=== PATIENT | male | born 1940 | race Caucasian/White ===

== ENCOUNTER → 2019-01-13 | Day surgery (SDC) | payer OTHER ==
[2019-01-13 07:56] VITALS: TEMP 98.4
[2019-01-13 13:50] VITALS: BP 150/54; PULSE 63
== END | disposition home or self-care (01) ==
LOC: EDSTATUS 01-06 16:00 → JASUSAT 06:12 → JASU-ENDO 06:12
PROVIDERS: ATTEND Family Medicine
PROC: 3E0337Z Introduction of Electrolytic and Water Balance Substance into Peripheral Vein, Percutaneous Approach (ICD-10-PCS; principal; 2019-01-13)
DX: M48.02 Spinal stenosis, cervical region (principal)
CPT/HCPCS: 70498-TC; 96360; 96361; C1887

== ENCOUNTER 2019-03-25 11:18 | Emergency (ER) | payer OTHER ==
[2019-03-25 11:28] VITALS: BP 168/70; PULSE 67; TEMP 99.2; BMI 22.8
--- NOTE | 2019-03-25 12:41 | PDOC ---
History of Present Illness - General Chief Complaint: Injury Stated Complaint: FALL Time Seen by Provider: 03/25/19 12:00 - History of Present Illness Initial Comments: 03/25/19 12:38 78-year-old male with a past medical history of coronary artery disease and metastatic melanoma presents for evaluation after a fall last night. He states he was intoxicated in his home fell and injured his right side. He complains of right-sided rib pain. He also complains of abrasions on his elbow. Past History - Past Medical History Allergies/Adverse Reactions: Allergies Allergy/AdvReac Type Severity Reaction Status Date / Time No Known Allergies Allergy Verified 03/25/19 11:20 Home Medications: Ambulatory Orders Amlodipine Besylate [Norvasc -] 2.5 mg PO DAILY 11/23/18 Clopidogrel Bisulfate [Plavix] 1 tab PO DAILY 11/23/18 Glimepiride [Amaryl -] 1 tab PO BID 11/23/18 Metoprolol Succinate 1 tab PO DAILY 11/23/18 Ramipril 1 tab PO DAILY 11/23/18 Simvastatin [Zocor -] 1 tab PO DAILY 11/23/18 Aspirin 81 mg PO DAILY 01/13/19 Cancer: Yes Cardiac Disorders: Yes (STENT PLACEMENT IN 1999) COPD: No Diabetes: Yes GI Disorders: Yes (constipation) Disorders: Yes HTN: Yes Hypercholesterolemia: Yes - Surgical History Cardiac Surgery: Yes (stent) - Immunization History Td Vaccination: No Immunization Up to Date: Yes - Suicide/Smoking/Psychosocial Hx Smoking Status: No Smoking History: Current every day smoker Have you smoked in the past 12 months: Yes Number of Cigarettes Smoked Daily: 3 Information on smoking cessation initiated: Yes Hx Alcohol Use: No Drug/Substance Use Hx: No Substance Use Type: Alcohol Review of Systems - Review of Systems Respiratory: Yes: See HPI. No: Cough, Shortness of Breath *Physical Exam - Vital Signs Last Vital Signs Temp Pulse Resp BP Pulse Ox 99.2 F 67 16 168/70 97 03/25/19 11:20 03/25/19 11:20 03/25/19 11:20 03/25/19 11:20 03/25/19 11:20 - Physical Exam Comments: 03/25/19 12:38 HEAD: NC/AT EYES: Conjuntiva clear Ears: Right ear has been surgically removed NOSE: No d/c THROAT: Moist mucous membrances, oral pharanx clear, uvula midline NECK: Supple without adenopathy CARDIAC: S1 S2 LUNGS: CTA Full and Equal breath sounds; there is rib tenderness about the posterior aspect of ribs 12 ABDOMEN: Soft NT ND MS: Full ROM in all joints without edema NEUROLOGIC: No gross sensory or motor deficits, NVID SKIN: Normal color and temperature there are superficial abrasions on the posterior aspect of bilateral elbows. There are large irregular lesions throughout the forearms ED Treatment Course - RADIOLOGY Radiology Studies Ordered: Category Date Time Status CHEST PA & LAT [RAD] Stat Radiology 03/25/19 12:06 Completed RIBS RIGHT SIDE [RAD] Stat Radiology 03/25/19 12:06 Completed Medical Decision Making - Medical Decision Making 03/25/19 12:39 X-ray showed no pneumothorax and no rib fractures Tylenol for pain follow-up with PCP *DC/Admit/Observation/Transfer Diagnosis at time of Disposition: Contusion of rib on right side - Discharge Dispostion Disposition: HOME Condition at time of disposition: Stable Decision to Admit order: No - Referrals Referrals: Jesus Us MD [Primary Care Provider] - - Patient Instructions Printed Discharge Instructions: Contusion, DI for Contusion, DI for Rib Contusion Additional Instructions: Tylenol for pain. Return to the emergency room for worsening symptoms. Follow- up with your primary care physician in 1-2 days for further evaluation and treatment options. - Post Discharge Activity
== END 2019-03-25 13:36 | disposition home or self-care (01) ==
LOC: JERFT 11:18
DX: S20.219A Contusion of unspecified front wall of thorax, initial encounter (principal); W18.39XA Other fall on same level, initial encounter; Y93.89 Activity, other specified; Y92.009 Unspecified place in unspecified non-institutional (private) residence as the place of occurrence of the external cause; Z95.0 Presence of cardiac pacemaker; Z95.5 Presence of coronary angioplasty implant and graft; I10 Essential (primary) hypertension; E78.00 Pure hypercholesterolemia, unspecified; C79.9 Secondary malignant neoplasm of unspecified site
CPT/HCPCS: 71046-TC-FY; 71101-TC-RT-FY; 99281-25

== ENCOUNTER 2019-05-26 03:34 | Emergency (ER) | payer OTHER ==
[2019-05-26 04:19] VITALS: BP 188/69; PULSE 71; TEMP 98.1; BMI 23.0
--- NOTE | 2019-05-26 04:54 | PDOC ---
History of Present Illness - General Chief Complaint: Injury Stated Complaint: FALL Time Seen by Provider: 05/26/19 04:54 - History of Present Illness Initial Comments: 05/27/19 03:58 The patient is a 78 year old male with a PMH of HTN, HLD who presents s/p fall. Patient states he had a few beers and was mopping his floor when he slipped. Falling on his R side hitting his head and injuring his hand. Denies any LOC, was immediately ambulatory after the fall. Patient now c/o forehead and L index finger laceration. Patient reports an increase in his alcohol consumption following the of his late last year. 10 point ROS is negative including no shortness of breath, chest pain, abdominal pain, nausea/vomiting, diarrhea/constipation, dysuria/hematuria. NKDA Past History - Past Medical History Allergies/Adverse Reactions: Allergies Allergy/AdvReac Type Severity Reaction Status Date / Time No Known Allergies Allergy Verified 05/26/19 04:17 Home Medications: Ambulatory Orders Amlodipine Besylate [Norvasc -] 2.5 mg PO DAILY 11/23/18 Clopidogrel Bisulfate [Plavix] 1 tab PO DAILY 11/23/18 Glimepiride [Amaryl -] 1 tab PO BID 11/23/18 Metoprolol Succinate 1 tab PO DAILY 11/23/18 Ramipril 1 tab PO DAILY 11/23/18 Simvastatin [Zocor -] 1 tab PO DAILY 11/23/18 Aspirin 81 mg PO DAILY 01/13/19 Cancer: Yes Cardiac Disorders: Yes (STENT PLACEMENT IN 1999) COPD: No Diabetes: Yes GI Disorders: Yes (constipation) Disorders: Yes HTN: Yes Hypercholesterolemia: Yes - Surgical History Cardiac Surgery: Yes (stent) - Immunization History Td Vaccination: No Immunization Up to Date: Yes - Suicide/Smoking/Psychosocial Hx Smoking Status: No Smoking History: Current some day smoker Have you smoked in the past 12 months: Yes Number of Cigarettes Smoked Daily: 3 Information on smoking cessation initiated: No Hx Alcohol Use: Yes Drug/Substance Use Hx: No Substance Use Type: Alcohol Review of Systems - Review of Systems Constitutional: No: Chills, Fever HEENTM: No: Blurred Vision, Recent change in vision Respiratory: No: Cough, Shortness of Breath Cardiac (ROS): No: Chest Pain, Lightheadedness, Palpitations ABD/GI: No: Constipated, Diarrhea, Nausea, Vomiting : No: Burning, Dysuria *Physical Exam - Vital Signs Last Vital Signs Temp Pulse Resp BP Pulse Ox 98.1 F 71 19 188/69 H 97 05/26/19 03:34 05/26/19 03:34 05/26/19 03:34 05/26/19 03:34 05/26/19 03:34 - Physical Exam General Appearance: Yes: Nourished, Appropriately Dressed HEENT: positive: Other (1 cm jagged left inferior forehead laceration) Neck: positive: Trachea midline, Supple Respiratory/Chest: positive: Lungs Clear, Normal Breath Sounds Cardiovascular: positive: Regular Rate, S1, S2. 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 Forehead laceration and Right index finger abrasion with displaced skin repaired using glue and Steri Strips. Patient counseled on return precautions, alcohol cessation and discharged home. I discussed the physical exam findings, ancillary test results and final diagnoses with the patient. I answered all of the patient's questions. The patient was satisfied with the care received and felt comfortable with the discharge plan and treatment plan. The patient will return to the Emergency Department with any new, persistent or worsening symptoms. *DC/Admit/Observation/Transfer Diagnosis at time of Disposition: Fall - Discharge Dispostion Disposition: HOME Condition at time of disposition: Good Decision to Admit order: No - Referrals Referrals: Jesus Us MD [Primary Care Provider] - - Patient Instructions Printed Discharge Instructions: DI for Laceration Repair Steri-Strips Additional Instructions: Please keep your pan and and hand dry for the next 24 hours. We have included instruction on how to care for your wounds. Return to the Emergency Department for any new/worsening/concerning symptoms. - Post Discharge Activity
--- NOTE | 2019-05-26 04:57 | PDOC ---
Attending Attestation - Resident Resident Name: Nan Brasher - ED Attending Attestation I have performed the following: I have examined & evaluated the patient, The case was reviewed & discussed with the resident, I agree w/resident's findings & plan - HPI HPI: 05/26/19 21:07 see resident hpi - Physicial Exam PE: 05/26/19 21:08 agree with resident exam - Medical Decision Making 05/26/19 21:08 78 yo male s/p fall with hand anf forehead wound plan for CT head/cervical spine wound care by ED resident case signed out to day shift pending imaging
== END 2019-05-26 08:30 | disposition home or self-care (01) ==
LOC: JER 03:34
PROC: 0HQ1XZZ Repair Face Skin, External Approach (ICD-10-PCS; principal; 2019-05-26)
DX: S01.81XA Laceration without foreign body of other part of head, initial encounter (principal); W01.0XXA Fall on same level from slipping, tripping and stumbling without subsequent striking against object, initial encounter; Y93.E5 Activity, floor mopping and cleaning; Y92.009 Unspecified place in unspecified non-institutional (private) residence as the place of occurrence of the external cause; I10 Essential (primary) hypertension; E78.5 Hyperlipidemia, unspecified; Z95.5 Presence of coronary angioplasty implant and graft; E11.9 Type 2 diabetes mellitus without complications; F17.210 Nicotine dependence, cigarettes, uncomplicated
CPT/HCPCS: 70450-TC; 72125-TC; 99281-25

== ENCOUNTER 2021-03-09 17:00 | Inpatient (IN) | payer OTHER ==
[2021-03-09] MEDS ORDERED: LIDOCAINE 5% TOPICAL PATCH TP ONE (19:14)
[2021-03-09] MEDS ORDERED: LIDOCAINE 5% TOPICAL PATCH ONE (19:28)
[2021-03-09 20:36] LABS: BASO % 1.2 % (0-2.0); EOS % 0.3 % (0-4.5); HEMATOCRIT 44.7 % (35.4-49); HEMOGLOBIN 15.4 GM/dL (11.7-16.9); LYMPH % 3.6 % (8-40); MCH 32.4 pg (25.7-33.7); MCHC 34.3 g/dl (32.0-35.9); MEAN CELL VOLUME 94.3 fl (80-96); MEAN PLT VOLUME 8.4 fl (7.5-11.1); MONO % 4.7 % (3.8-10.2); NEUT % 90.2 % (42.8-82.8); PLATELET COUNT 225 10^3/uL (134-434); RBC 4.74 M/mm3 (4.00-5.60); RDW 13.8 % (11.9-15.9); WHITE BLOOD COUNT 13.3 K/mm3 (4.0-10.0)
[2021-03-09 20:55] LABS: CHLORIDE 104 mmol/L (98-107); SODIUM 137 mmol/L (136-145)
[2021-03-09 20:57] LABS: ALBUMIN 4.1 g/dl (3.4-5.0); ANION GAP 10 MMOL/L (8-16); BLOOD UREA NITROGEN 13.2 mg/dL (7-18); CO2 23 mmol/L (21-32); GLUCOSE,RANDOM 256 mg/dL (74-106)
[2021-03-09 21:00] LABS: CREATININE 1.4 mg/dL (0.55-1.3); SGOT/AST 25 U/L (15-37); SGPT/ALT 18 U/L (13-61)
[2021-03-09 21:02] LABS: BILIRUBIN,TOTAL 0.6 mg/dL (0.2-1); TOT PROT 7.8 g/dl (6.4-8.2)
[2021-03-09 21:03] LABS: ALK PHOS 99 U/L (45-117)
[2021-03-09] MEDS ORDERED: LIDOCAINE PATCH REMOVAL MC SCH (22:00)
[2021-03-09] MEDS ORDERED: MELATONIN 5 MG TABLETS PO PRN (23:58)
[2021-03-10 00:08] VITALS: BMI 21.2
[2021-03-10] MEDS ORDERED: ACETAMINOPHEN 325 MG TABLET (FP) PO PRN (00:53)
[2021-03-10] MEDS: oxyCODONE HCL 5 MG TABLET PO PRN ×2 (01:03→08:15)
[2021-03-10 05:47] VITALS: TEMP 97.9
[2021-03-10] MEDS: INSULIN SLIDING SCALE (NOVOLOG) 1 VIAL SQ SCH ×2 (06:02→11:30)
[2021-03-10 08:44] LABS: BASO % 0.4 % (0-2.0); EOS % 1.9 % (0-4.5); HEMATOCRIT 42.9 % (35.4-49); HEMOGLOBIN 14.2 GM/dL (11.7-16.9); LYMPH % 14.3 % (8-40); MCH 31.6 pg (25.7-33.7); MCHC 33.2 g/dl (32.0-35.9); MEAN PLT VOLUME 8.6 fl (7.5-11.1); MONO % 14.5 % (3.8-10.2); NEUT % 68.9 % (42.8-82.8); PLATELET COUNT 219 10^3/uL (134-434); RBC 4.51 M/mm3 (4.00-5.60); RDW 13.6 % (11.9-15.9); WHITE BLOOD COUNT 8.7 K/mm3 (4.0-10.0)
[2021-03-10 09:09] VITALS: BP 143/72; PULSE 61
[2021-03-10 09:10] LABS: ALBUMIN 3.5 g/dl (3.4-5.0); BLOOD UREA NITROGEN 15.1 mg/dL (7-18)
[2021-03-10 09:11] LABS: BILIRUBIN,TOTAL 0.7 mg/dL (0.2-1)
[2021-03-10] MEDS ORDERED: oxyCODONE HCL 5 MG TABLET PO PRN (09:12)
[2021-03-10 09:13] LABS: CREATININE 1.3 mg/dL (0.55-1.3)
[2021-03-10] MEDS ORDERED: ASPIRIN 81 MG CHEWABLE TABLETS PO SCH (10:00)
[2021-03-10] MEDS ORDERED: metoPROLOL SUCCINATE 25 MG TAB.SR.24H (FP) PO SCH (10:00)
[2021-03-10] MEDS ORDERED: LISINOPRIL 5 MG TABLET PO SCH (10:00)
[2021-03-10] MEDS ORDERED: amLODIPine BESYLATE 5 MG TABLET (FP) PO SCH (10:00)
[2021-03-10] MEDS ORDERED: CLOPIDOGREL BISULFATE 75 MG TABLET (FP) PO SCH (10:00)
[2021-03-10] MEDS ORDERED: DOCUSATE SODIUM 100 MG CAPSULE (FP) PO SCH (10:00)
[2021-03-10] MEDS ORDERED: GLIMEPIRIDE 2 MG TABLET PO SCH (16:30)
[2021-03-10] MEDS ORDERED: ATORVASTATIN CA 10 MG TABLET (FP) PO SCH (22:00)
== END 2021-03-10 16:16 | disposition home or self-care (01) | DRG 184 ==
LOC: JER 17:00 → JERBED 20:26 → J8W 23:19
PROVIDERS: ADMIT Internal Medicine; ATTEND Family Medicine
DX: S22.42XA Multiple fractures of ribs, left side, initial encounter for closed fracture (principal); N17.9 Acute kidney failure, unspecified; S27.0XXA Traumatic pneumothorax, initial encounter; J98.11 Atelectasis; I10 Essential (primary) hypertension; E78.5 Hyperlipidemia, unspecified; F10.20 Alcohol dependence, uncomplicated; I25.10 Atherosclerotic heart disease of native coronary artery without angina pectoris; E86.0 Dehydration; W01.190A Fall on same level from slipping, tripping and stumbling with subsequent striking against furniture, initial encounter; Y93.89 Activity, other specified; Y99.8 Other external cause status; Y92.009 Unspecified place in unspecified non-institutional (private) residence as the place of occurrence of the external cause
CPT/HCPCS: 36415; 71250-TC; 80053; 80307; 82962; 83036; 85025; 93005; 93010; 94010; 99285-25; C9803; U0003; U0005

== ENCOUNTER 2022-01-09 11:05 | Emergency (ER) | payer OTHER ==
[2022-01-09 11:39] VITALS: BP 157/60; PULSE 58; TEMP 98; BMI 22.1
[2022-01-09] MEDS ORDERED: DIPHTH,PERTUSS(ACELL),TET 0.5 ML DISP.SYRIN IM ONE ×2 (12:25→12:33)
== END 2022-01-09 12:36 | disposition home or self-care (01) ==
LOC: JERFT 11:05
PROC: 3E0234Z Introduction of Serum, Toxoid and Vaccine into Muscle, Percutaneous Approach (ICD-10-PCS; principal; 2022-01-09)
DX: S91.311A Laceration without foreign body, right foot, initial encounter (principal); W55.03XA Scratched by cat, initial encounter
CPT/HCPCS: 90471; 90715; 99283-25

== ENCOUNTER 2022-05-18 19:37 | Emergency (ER) | payer OTHER ==
[2022-05-18 20:43] VITALS: BP 179/87; PULSE 104; RESP 20; TEMP 97.9; BMI 21.4
== END 2022-05-19 00:56 | disposition home or self-care (01) ==
LOC: JER 19:37
PROC: 0HQFXZZ Repair Right Hand Skin, External Approach (ICD-10-PCS; principal; 2022-05-18)
PROC: 0HQGXZZ Repair Left Hand Skin, External Approach (ICD-10-PCS; 2022-05-18)
PROC: 0JQ10ZZ Repair Face Subcutaneous Tissue and Fascia, Open Approach (ICD-10-PCS; 2022-05-18)
DX: S61.411A Laceration without foreign body of right hand, initial encounter (principal); S61.412A Laceration without foreign body of left hand, initial encounter; S01.81XA Laceration without foreign body of other part of head, initial encounter
CPT/HCPCS: 70450-TC; 72125-TC; 73130-TC-RT-FY; 99285-25

== ENCOUNTER 2022-07-11 14:44 | Emergency (ER) | payer OTHER ==
[2022-07-11 14:57] VITALS: TEMP 98.2; BMI 21.2
[2022-07-11] MEDS ORDERED: BACITRACIN 15 GM TUBE TOPICAL OINTMENT TP ONE (15:33)
[2022-07-11] MEDS ORDERED: BACITRACIN 15 GM TUBE TOPICAL OINTMENT ONE (15:33)
[2022-07-11 16:11] VITALS: BP 166/78; PULSE 86; RESP 19
== END 2022-07-11 16:11 | disposition home or self-care (01) ==
LOC: JERFT 14:44
DX: S60.511A Abrasion of right hand, initial encounter (principal); S60.512A Abrasion of left hand, initial encounter; S80.211A Abrasion, right knee, initial encounter; W19.XXXA Unspecified fall, initial encounter
CPT/HCPCS: 99282-25